=== PATIENT | female | born 1945 | race Caucasian/White ===

== ENCOUNTER → 2016-10-20 | Outpatient (CLI) | payer MEDICARE, OTHER ==
[~2016-10-20] MED LIST: CALCIUM1 CAP PO; LORTAB 5/500 501 TAB PO; NO HOME MEDICATIONS; PROMETHAZINE12.5 M5 PO; Vitamin B 12; [UNRECOGNIZED DRUG - OTHER] PO
== END ==
LOC: MC.RAD 10:50
DX: Z12.31 Encounter for screening mammogram for malignant neoplasm of breast (principal)